=== PATIENT | female | born 1990 | race Caucasian/White ===

== ENCOUNTER 2020-04-30 17:12 | Emergency (ER) | payer MEDICAID ==
--- NOTE | 2020-04-30 18:38 | NUR ---
NOT IN LOBBY 1740, 1745, 181
== END 2020-04-30 18:38 | disposition left against medical advice (07) ==
LOC: ED 18:30
DX: M79.89 Other specified soft tissue disorders (principal); Z53.21 Procedure and treatment not carried out due to patient leaving prior to being seen by health care provider

== ENCOUNTER 2020-05-01 06:18 | Emergency (ER) | payer MEDICAID ==
[~2020-05-01] VITALS: Ht 167.6 cm; Wt 105.2 kg
[2020-05-01 06:24] VITALS: BP 162/92
[2020-05-01] MEDS ORDERED: LIDOCAINE-MPF 1%, 5ML ONE (06:41)
[2020-05-01] MEDS ORDERED: LIDOCAINE-MPF 1%, 5ML INFIL ONE (07:00)
== END 2020-05-01 07:23 | disposition home or self-care (01) ==
LOC: ED 06:46
DX: L02.31 Cutaneous abscess of buttock (principal); R21 Rash and other nonspecific skin eruption
CPT/HCPCS: 10060; 99283